=== PATIENT | female | born 1985 | race Caucasian/White ===

== ENCOUNTER → 2021-02-02 | Outpatient (CLI) | payer MEDICARE, OTHER ==
[~2021-02-02] MED LIST: BENADRYL ALLERG25 MG PO; CEPHALEXIN500 MG PO; ESTRACE2 MG PO; NEURONTIN600 MG PO; PHENERGAN 12.12.5 M1 PO; PHENERGAN 25 MG25 M1 PO; PREMARIN VAG CR30 GM EXT; PRILOSEC OTC20 MG PO; SUBOXONE 8 MG-1 EACH SL; TESSALON PERLE100 MG PO; TYLOPHEN500 MG PO; ZOFRAN ODT 4 MG4 MG SL
[2021-02-04 16:11] LABS: ENDOMYSIAL ANTIBODY IGA Negative (Negative); IMMUNOGLOBULIN A, QN, SERUM 232 mg/dL (87-352); T-TRANSGLUTAMINASE (TTG) IGA <2 U/mL (0-3); T-TRANSGLUTAMINASE (TTG) IGG <2 U/mL (0-5)
== END ==
LOC: LAB 18:10
PROVIDERS: Nurse Practitioner Family
DX: R10.9 Unspecified abdominal pain (principal)
CPT/HCPCS: 82784

== ENCOUNTER → 2021-02-24 | Day surgery (SDC) | payer MEDICARE, OTHER ==
[2021-02-24 13:21] LABS: HEMOGLOBIN 16.1 gm/dl (12.3-15.3); RED BLOOD COUNT 4.62 M/UL (4.00-5.10); WHITE BLOOD COUNT 9.2 K/UL (4.5-11.0)
== END | disposition home or self-care (01) ==
LOC: OR 12:34
PROVIDERS: Obstetrics & Gynecology
PROC: 0HQAXZZ Repair Inguinal Skin, External Approach (ICD-10-PCS; 2021-02-24)
PROC: 0UBMXZZ Excision of Vulva, External Approach (ICD-10-PCS; principal; 2021-02-24 16:30)
DX: N90.7 Vulvar cyst (principal); L73.9 Follicular disorder, unspecified; F17.210 Nicotine dependence, cigarettes, uncomplicated; E78.5 Hyperlipidemia, unspecified; K21.9 Gastro-esophageal reflux disease without esophagitis; G43.909 Migraine, unspecified, not intractable, without status migrainosus; E66.01 Morbid (severe) obesity due to excess calories; Z68.37 Body mass index [BMI] 37.0-37.9, adult; Z20.822 Contact with and (suspected) exposure to COVID-19; Z88.1 Allergy status to other antibiotic agents; Z88.5 Allergy status to narcotic agent; Z88.2 Allergy status to sulfonamides; Z88.6 Allergy status to analgesic agent; Z91.040 Latex allergy status; Z79.890 Hormone replacement therapy; Z79.899 Other long term (current) drug therapy
CPT/HCPCS: 36415; 81001; 85025; 87070; 87077; 87186; 87205; J0690; J1100; J2001; J2250; J2405; J2550; J2704; J2795; J3010; J7120; U0002

== ENCOUNTER → 2021-05-05 | Outpatient (CLI) | payer MEDICARE, OTHER | LOC: EXRD 08:28 | DX: M54.9 Dorsalgia, unspecified (principal) | CPT/HCPCS: 76775 ==